=== PATIENT | female | born 1965 | race Two or more races ===

== ENCOUNTER 2017-02-18 09:59 | Emergency (ER) | payer MEDICAID ==
[2017-02-18 10:48] LABS: BASOPHIL % 0.7 % (0-2); PLATELET COUNT 287 x10^3mcL (130-400); RED CELL DISTRIBUTION WIDTH 12.9 % (11.5-14.5)
[2017-02-18 10:57] LABS: CARBON DIOXIDE 24.4 mmol/L (21-32); CHLORIDE SERUM 105 mmol/L (98-107); CREATININE SERUM 0.5 mg/dL (0.6-1.0); GFR1 > 60 mL/min; GLUCOSE SERUM 93 mg/dL (74-106); POTASSIUM SERUM 4.3 mmol/L (3.5-5.1); SODIUM SERUM 141 mmol/L (136-145)
[2017-02-18 11:02] LABS: ALBUMIN 3.6 g/dL (3.4-5.0); ALKALINE PHOSPHATASE 75 U/L (46-116); ALT/SGPT 38 U/L (14-59); AST/SGOT 29 U/L (15-37); BILIRUBIN TOTAL 0.7 mg/dL (0.20-1.00); TOTAL PROTEIN, SERUM 7.3 g/dL (6.4-8.2)
[2017-02-18 12:02] VITALS: BP 121/72
== END 2017-02-18 12:02 | disposition home or self-care (01) ==
LOC: ED 09:59
PROVIDERS: Emergency Medicine
DX: R51 Headache (principal); R42 Dizziness and giddiness
CPT/HCPCS: J1200; J1885; J2765; J7030

== ENCOUNTER 2020-11-23 11:33 | Emergency (ER) | payer MEDICAID ==
[~2020-11-23] VITALS: Ht 157.5 cm; Wt 68.0 kg
[2020-11-23 11:40] VITALS: Ht 157.5 cm; Wt 68.0 kg
[2020-11-23 12:52] VITALS: BP 169/85
== END 2020-11-23 12:52 | disposition home or self-care (01) ==
LOC: ED 11:33
DX: S93.402A Sprain of unspecified ligament of left ankle, initial encounter (principal); S80.211A Abrasion, right knee, initial encounter; X50.1XXA Overexertion from prolonged static or awkward postures, initial encounter; Y93.89 Activity, other specified; Y92.89 Other specified places as the place of occurrence of the external cause; Y99.8 Other external cause status